=== PATIENT | female | born 1990 | race Caucasian/White ===

== ENCOUNTER → 2017-08-08 | Outpatient (CLI) | payer MEDICAID ==
[~2017-08-08] MED LIST: CALNTAB; MACR100C PO; ORTHTAB2 PO; PERC5TAB12 PO
== END ==
LOC: HPND 10:04
PROVIDERS: ATTEND Obstetrics & Gynecology
DX: O99.212 Obesity complicating pregnancy, second trimester (principal); E66.09 Other obesity due to excess calories; Z68.35 Body mass index [BMI] 35.0-35.9, adult; O34.211 Maternal care for low transverse scar from previous cesarean delivery
CPT/HCPCS: 76811

== ENCOUNTER 2017-12-24 22:35 | Inpatient (IN) ==
[2017-12-24] MEDS ORDERED: Naloxone Inj 0.4 MG/ML Vial IV.PUSH PRN (23:12)
[2017-12-24] MEDS ORDERED: Oxytocin 30 Units/500ml Premix 30 UNITS/500 ML BAG IV.SIG ONE (23:12)
[2017-12-24] MEDS ORDERED: ceFAZolin Inj 2,000 MG in Sodium Chlor 0.9% Inj 80 ML IV.SIG ONE (23:12)
--- NOTE | 2017-12-24 23:12 | ED ---
History of Present Illness Primary Care Physician: No Primary Care Physician Chief Complaint: 38 weeks, previous c section, leaking fluid History of Present Illness: Patient is a 27 yo at 38 weeks and 3 days. [facility] of [facility], previous C Section, scheduled for repeat LTCS at 39 weeks 12-28-2017. EDC 01-04-2018. Patient states she noted leaking fluid around 21:00 and after changing her pad, continued to leak. No vaginal bleeding. Active movements. complicated by gestational diabetes. Previous C Section was for FTP. patient plans tubal ligation and has state tubal papers signed. Weeks Gestation:: 38 Para: 1 : 2 Review of Systems All other systems reviewed negative except as stated in HPI PMFSH - History History Provided By: Patient - Medical History Medical History: Medical History (Last Updated 12/24/17 @ 23:11 by Junaid Kay MD) Gestational diabetes - Surgical History Surgical History: Surgical History (Last Updated 12/24/17 @ 23:11 by Junaid Kay MD) Hx laparoscopic cholecystectomy - Social History I have reviewed the patient's Social History: Yes - Tobacco History Tobacco Use In Past 30 Days: No Smoking Status: Never smoker - Alcohol History How Often Do You Have a Drink Containing Alcohol: Never - Substance Use History Substance History: No History of Abuse Medications and Allergies Allergies Allergy/AdvReac Type Severity Reaction Status Date / Time No Known Drug Allergies Allergy NONE Verified 12/24/17 23:08 Home Medications Medication Instructions Recorded Confirmed Type glyburide 5 mg PO DAILY PRN 12/24/17 12/24/17 History vit-iron fum-folic ac 1 tab PO DAILY 12/24/17 12/24/17 History [ Vitamin] Exam Vital signs: Vital Signs 12/24/17 23:02 Temperature 98.3 F Respiratory Rate 18 Narrative: GENERAL: Well-nourished, well-developed patient. SKIN: Warm and dry. HEAD: Normocephalic and atraumatic. EYES: No scleral icterus. No injection or drainage. ENT: No nasal drainage noted. Mucous membranes pink. Airway patent. NECK: Supple, trachea midline. No JVD. CARDIOVASCULAR: Regular rate and rhythm without murmurs, gallops, or rubs. RESPIRATORY: Breath sounds equal bilaterally. No accessory muscle use. BREASTS: Bilateral exam showed no masses , no retractions, no nipple discharge. ABDOMEN/GI: Abdomen soft, non-tender, bowel sounds present, no rebound, no guarding Gravid to [40] weeks size Fundal Height: [40cm] GENITOURINARY: External Genitalia: intact and normal in appearance BUS glands: [wnl] Cervix: [soft] Dilatation: [FT] Effacement: [50%] Station: [-3] Presentation: [vertex] Membranes: [ruptured] Positive pool, Amniosure positive. SSE Uterine Contractions: [-] FHT's: Category: [1] Baseline: [130s] Reactive: [-] Variability: [moderate] Decels: [none] EXTREMITIES: No cyanosis or edema. BACK: Nontender without obvious deformity. No CVA tenderness. NEUROLOGICAL: Awake and alert. Motor and sensory grossly within normal limits. Five out of 5 muscle strength in all muscle groups. Normal speech. - Constitutional no acute distress Results - Labs CBC & Chem 7: 12/24/17 23:19 Assessment and Plan - Diagnosis (1) with 38 completed weeks gestation Code(s): Z3A.38 - 38 weeks gestation of Status: Acute (2) Previous section Code(s): Z98.891 - History of uterine scar from previous surgery Status: Acute (3) Rupture of amniotic sac less than 24 hours prior to the onset of labor Code(s): O42.90 - Premature rupture of membranes, unspecified as to length of time between rupture and onset of labor, unspecified weeks of gestation Status : Acute Plan: Patient has SROM at term. Confirmed Patient had previous C Section and was scheduled for repeat LTCS 12-28-2017 Patient also has undesired fertility and plans tubal sterilzation. State papers have been signed. (4) Unwanted fertility Code(s): Z78.9 - Other specified health status Status: Acute Discharge Plan - Discharge Disposition Patient Disposition: 30 Still Patient - Discharge Condition Condition: Good - Discharge Details Diagnosis: 38 weeks gestation of , History of section, Premature rupture of membranes, Admitted to labor and delivery - Physicians Team ED Provider: Junaid Kay Primary Care Provider: Primary Care Felecia Lopez
[2017-12-24] MEDS ORDERED: Citric Acid/Sodium Citrate Liq 30 ML UDC PO SCH (23:15)
[2017-12-24] MEDS ORDERED: Morphine Sulfate PF Inj 5 MG/10 ML Ampul ONE (23:19)
[2017-12-24 23:28] LABS: Baso # (Auto) 0.1 th/mm3 (0.0-0.2); Baso % (Auto) 0.6 % (0.0-2.0); Eos # (Auto) 0.1 th/mm3 (0.0-0.4); Eos % (Auto) 0.7 % (0.0-4.0); Hematocrit 31.9 % (35.0-46.0); Lymph % (Auto) 20.9 % (9.0-44.0); Mean Corpuscular HGB Conc 34.5 % (32.0-36.0); Mean Corpuscular Hemoglobin 29.4 pg (27.0-34.0); Mean Corpuscular Volume 85.1 fL (80.0-100.0); Mean Platelet Volume 8.4 fL (7.0-11.0); Mono # (Auto) 0.6 th/mm3 (0.0-0.9); Neut % (Auto) 71.8 % (16.0-70.0); Platelet Count 152 th/mm3 (150-450); Red Blood Count 3.75 mil/mm3 (4.00-5.30); Red Cell Distribution Width 13.5 % (11.6-17.2); White Blood Count 9.7 th/mm3 (4.0-11.0)
[2017-12-24 23:31] LABS: Bilirubin,Urine Negative (Negative); Clarity,Urine Hazy (Clear); Color,Urine Yellow (Yellw/Straw); Glucose,Urine (UA) 150 mg/dL (Negative); Leukocyte Esterase,Urine Negative (Negative); Nitrite,Urine Negative (Negative); Specific Gravity,Urine 1.011 (1.002-1.035); Squamous Epithelial Cell,Urine 4 /hpf (0-5)
--- NOTE | 2017-12-24 23:32 | P.HPOB ---
History of Present Illness Primary Care Physician: No Primary Care Physician Chief Complaint: 38 weeks, previous c section, leaking fluid History of Present Illness: Patient is a 27 yo at 38 weeks and 3 days. [facility] of [facility], previous C Section, scheduled for repeat LTCS at 39 weeks 12-28-2017. EDC 01-04-2018. Patient states she noted leaking fluid around 21:00 and after changing her pad, continued to leak. No vaginal bleeding. Active movements. complicated by gestational diabetes. Previous C Section was for FTP. Patient plans tubal ligation and has state tubal papers signed. Weeks Gestation:: 38 Para: 1 : 2 - Inpatient Certification I certify that the inpatient services were ordered in accordance with Medicare regulations governing the order. This includes certification that hospital inpatient services are reasonable and necessary and in the case of services not specified as inpatient-only under 42 CFR 419.22(n), that they are appropriately provided as inpatient services in accordance to with the 2-midnight benchmark under 43 CFR 412.3(e) Estimated Total Length of Stay (Days): 3 Plans for Post Hospital Care: Home Review of Systems All other systems reviewed negative except as stated in HPI PMFSH - History History Provided By: Patient - Medical History Medical History: Medical History (Last Updated 12/24/17 @ 23:11 by Junaid Kay MD) Gestational diabetes - Surgical History Surgical History: Surgical History (Last Updated 12/24/17 @ 23:11 by Junaid Kay MD) Hx laparoscopic cholecystectomy - Social History I have reviewed the patient's Social History: Yes - Tobacco History Tobacco Use In Past 30 Days: No Smoking Status: Never smoker - Alcohol History How Often Do You Have a Drink Containing Alcohol: Never - Substance Use History Substance History: No History of Abuse Medications and Allergies Active Medications: Active Medications Citric Acid/Sodium Citrate (Sodium Citrate/Citric Acid Liq) 30 ml PO PRINCIPAL DATA [employer]CH[employer] [facility] Stop: 12/28/17 23:14 Lactated Ringer's (Lr 1000 Ml Inj) 1,000 mls @ 3,000 mls/hr IV.SIG UNSCH PRN PRN Reason: compromise or epidural Lactated Ringer's (Lr 1000 Ml Inj) 1,000 mls @ 125 mls/hr IV.CONT .Q8H [facility] Oxytocin (Pitocin 30 Units/Ns 500 Ml Premix) 30 units in 500 mls @ 999 mls/hr IV.SIG BOLUS ONE Stop: 12/24/17 23:42 Cefazolin Sodium 2,000 mg/ (Sodium Chloride) 100 mls @ 200 mls/hr IV.SIG ONCE ONE Stop: 12/24/17 23:41 Lidocaine HCl (Xylocaine 1% Inj) 0.1 ml I-DERMAL PRN PRN PRN Reason: For IV start Stop: 12/27/17 23:11 Lidocaine HCl (Xylocaine 1% Inj) 10 ml INFILTRATN PRN PRN PRN Reason: For episiotomy repair Stop: 12/26/17 23:11 Metoclopramide HCl (Reglan Inj) 10 mg IV.PUSH ONCE PRN; Protocol PRN Reason: NAUSEA OR VOMITING Mineral Oil (Muri-Lube Oil) 10 ml TOPICAL PRN PRN PRN Reason: PRN perineal massage Naloxone HCl (Narcan Inj) 0.1 mg IV.PUSH Q2M PRN PRN Reason: for opiate reversal Allergies Allergy/AdvReac Type Severity Reaction Status Date / Time No Known Drug Allergies Allergy NONE Verified 12/24/17 23:08 Home Medications Medication Instructions Recorded Confirmed Type glyburide 5 mg PO DAILY PRN 12/24/17 12/24/17 History vit-iron fum-folic ac 1 tab PO DAILY 12/24/17 12/24/17 History [ Vitamin] Exam Vital signs: Vital Signs 12/24/17 23:02 12/24/17 23:03 Temperature 98.3 F Pulse Rate 97 H Respiratory Rate 18 Blood Pressure 129/84 Intake & Output 12/24/17 12/24/17 12/25/17 06:59 18:59 06:59 Weight 99.79 kg Narrative: GENERAL: Well-nourished, well-developed patient. SKIN: Warm and dry. HEAD: Normocephalic and atraumatic. EYES: No scleral icterus. No injection or drainage. ENT: No nasal drainage noted. Mucous membranes pink. Airway patent. NECK: Supple, trachea midline. No JVD. CARDIOVASCULAR: Regular rate and rhythm without murmurs, gallops, or rubs. RESPIRATORY: Breath sounds equal bilaterally. No accessory muscle use. BREASTS: Bilateral exam showed no masses , no retractions, no nipple discharge. ABDOMEN/GI: Abdomen soft, non-tender, bowel sounds present, no rebound, no guarding Gravid to [40] weeks size Fundal Height: [40cm] GENITOURINARY: External Genitalia: intact and normal in appearance BUS glands: [wnl] Cervix: [soft] Dilatation: [FT] Effacement: [50%] Station: [-3] Presentation: [vertex] Membranes: [ruptured] Positive pool, Amniosure positive. SSE Uterine Contractions: [-] FHT's: Category: [1] Baseline: [130s] Reactive: [-] Variability: [moderate] Decels: [none] EXTREMITIES: No cyanosis or edema. BACK: Nontender without obvious deformity. No CVA tenderness. NEUROLOGICAL: Awake and alert. Motor and sensory grossly within normal limits. Five out of 5 muscle strength in all muscle groups. Normal speech. - Constitutional no acute distress Results - Labs CBC & Chem 7: 12/24/17 23:19 Labs: Laboratory Results - last 24 hr 12/24/17 23:19 WBC 9.7 RBC 3.75 L Hgb 11.0 L Hct 31.9 L MCV 85.1 MCH 29.4 MCHC 34.5 RDW 13.5 Plt Count 152 MPV 8.4 Neut % (Auto) 71.8 H Lymph % (Auto) 20.9 [place] % (Auto) 6.0 Eos % (Auto) 0.7 Baso % (Auto) 0.6 Neut # (Auto) 7.0 Lymph # (Auto) 2.0 [place] # (Auto) 0.6 Eos # (Auto) 0.1 Baso # (Auto) 0.1 WBC Differential . Differential Comment Auto diff final Group B Strep: Negative Caprini VTE Risk Assessment Caprini VTE Risk Assessment: Moderate/High Risk (score >= 2) VTE Pharmacological Exception Reason: High risk for bleeding Caprini Risk Assessment Model: Point Value = 1 Point Value = 2 Point Value = 3 Point Value = 5 Age 41-60 Minor surgery BMI > 25 kg/m2 Swollen legs Varicose veins or History of unexplained or recurrent spontaneous Oral contraceptives or hormone replacement Sepsis (< 1 month) Serious lung disease, including pneumonia (< 1 month) Abnormal pulmonary function Acute myocardial infarction Congestive heart failure (< 1 month) History of inflammatory bowel disease Medical patient at bed rest Age 61-74 Arthroscopic surgery Major open surgery (> 45 min) Laparoscopic surgery (> 45 min) Malignancy Confined to bed (> 72 hours) Immobilizing plaster cast Central venous access Age >= 75 History of VTE Family history of VTE Factor V Leiden Prothrombin [id number] Lupus anticoagulant Anticardiolipin antibodies Elevated serum homocysteine Heparin-induced thrombocytopenia Other congenital or acquired thrombophilia Stroke (< 1 month) Elective arthroplasty Hip, pelvis, or leg fracture Acute spinal cord injury (< 1 month) Prophylaxis Regimen: Total Risk Factor Score Risk Level Prophylaxis Regimen 0-1 Low Early ambulation 2 Moderate Order ONE of the following: *Sequential Compression Device (SCD) *Heparin 5000 units SQ BID 3-4 Higher Order ONE of the following medications: *Heparin 5000 units SQ TID *Enoxaparin/Lovenox 40 mg SQ daily (WT < 150 kg, CrCl > 30 mL/min) *Enoxaparin/Lovenox 30 mg SQ daily (WT < 150 kg, CrCl > 10-29 mL/min) *Enoxaparin/Lovenox 30 mg SQ BID (WT < 150 kg, CrCl > 30 mL/min) AND/OR *Sequential Compression Device (SCD) 5 or more Highest Order ONE of the following medications: *Heparin 5000 units SQ TID (Preferred with Epidurals) *Enoxaparin/Lovenox 40 mg SQ daily (WT < 150 kg, CrCl > 30 mL/min) *Enoxaparin/Lovenox 30 mg SQ daily (WT < 150 kg, CrCl > 10-29 mL/min) *Enoxaparin/Lovenox 30 mg SQ BID (WT < 150 kg, CrCl > 30 mL/min) AND *Sequential Compression Device (SCD) Assessment and Plan - Diagnosis (1) with 38 completed weeks gestation Code(s): Z3A.38 - 38 weeks gestation of Status: Acute (2) Previous section Code(s): Z98.891 - History of uterine scar from previous surgery Status: Acute (3) Rupture of amniotic sac less than 24 hours prior to the onset of labor Code(s): O42.90 - Premature rupture of membranes, unspecified as to length of time between rupture and onset of labor, unspecified weeks of gestation Status : Acute Plan: Patient has SROM at term. Confirmed Patient had previous C Section and was scheduled for repeat LTCS 12-28-2017 Patient also has undesired fertility and plans tubal sterilzation. State papers have been signed. (4) Unwanted fertility Code(s): Z78.9 - Other specified health status Status: Acute Plan: Proceed with repeat LTCS and bilateral tubal sterilization by bilateral salpingectomy. GBS negative.
[2017-12-24] MEDS ORDERED: Normosol-R pH 7.4 Inj 1,000 ML IV.CONT ONE (23:34)
[2017-12-24] MEDS ORDERED: Phenylephrine/NS 1000 MCG/10ML Syringe IV.PUSH ONE (23:34)
[2017-12-24 23:36] LABS: Amphetamine Urine With Conf Neg (Neg); Benzodiazepine Urine With Conf Neg (Neg)
[2017-12-25] MEDS ORDERED: Bisacodyl 10 MG Supp RECTAL PRN (01:07)
[2017-12-25] MEDS ORDERED: Oxytocin 30 Units/500ml Premix 30 UNITS/500 ML BAG IV.CONT PRN (01:07)
[2017-12-25] MEDS ORDERED: Zolpidem Tartrate 5 MG Tablet PO PRN (01:07)
[2017-12-25] MEDS ORDERED: Witch Hazel 50%/Glyderin 12.5% 40 Pad Jar RECTAL PRN (01:07)
[2017-12-25] MEDS ORDERED: Acetaminophen 325 MG Tablet PO PRN (01:07)
[2017-12-25] MEDS ORDERED: Naloxone Inj 0.4 MG/ML Vial IV.PUSH PRN ×2 (01:07)
[2017-12-25] MEDS ORDERED: Benzocaine 20% Top Spray 60 ML Can TOPICAL PRN (01:07)
--- NOTE | 2017-12-25 01:07 | P.OBDELI ---
Procedure Note - Pre Op Diagnosis (1) with 38 completed weeks gestation (2) Previous section (3) Rupture of amniotic sac less than 24 hours prior to the onset of labor (4) Unwanted fertility - Post Op Diagnosis (1) with 38 completed weeks gestation (2) Previous section (3) Rupture of amniotic sac less than 24 hours prior to the onset of labor (4) Unwanted fertility Performed by: Junaid Kay MD Procedure: Repeat Low Transverse Section, Other (BILATERAL SALPINGECTOMY) Indication for Delivery: Desired elective repeat , Other (Spontaneous rupture of Membranes) Informed Consent Obtained: For anesthesia, For procedure Confirmed Correct: Patient, Procedure, Time-out taken Anesthesia: Spinal (previous LTCS) Medication Prior to Procedure: As documented in eMAR, Antacids, Antibiotics, IV , Antiemetics Urinary Catheter: Inserted using sterile technique, To dependent drainage Sterile Preparation: With 2% chlorexidine (Hibiclens) Position: Supine with wedge to left side - Operative Features Skin Incision: Pfannenstiel Uterine Incision: Low transverse w/knife / blunt ext Membranes Ruptured: Previously Presentation: Occiput posterior Status of : Viable, Umbilical cord, Nursery present Placenta Delivered: Intact Medications: Antibiotics, Oxytocin Estimated blood loss (mL): 600 Procedure Tolerated: Well Maternal Condition: Stable Baby Condition: Stable Procedure in Detail: Patient was brought to oR where she was properly identified and informed consent confirmed. She was positioned for spinal anesthesia which was induced without any difficulty. Patient was then positioned in a dorsal supine position with leftward tilt. A Martini catheter was then inserted under sterile technique. She was cleansed and draped in standard sterile fashion. After confirming adequacy of anesthesia scalpel was used to make incision through her previous pfannsteil scar and then continued through subcutaneous layer using Bovie cautery. Rectus fascia was scored in the midline and extended bilaterally using curved Ruano scissors. Rectus fascia was from underlying rectus muscles inferiorly and superiorly,using sharp dissection with Bovie pencil. Rectus muscles were in midline and underlying peritoneum identified. this was tented upwards between two hemostats, entered sharply with Sanjiv scissors, and extended superiorly and inferiorly with Bovie pencil, with careful visualization of the bladder. Inspection of intraperitoneal anatomy was done and bladder blade applied. The vesicouterine reflection was tented with pickups, entered sharply with Guide Rock and extended bilaterally. bladder flap was then created digitally, and bladder blade repositioned. Fresh scalpel was then used to make incision over AZUL, and amniotomy was done with clear fluid. Infant was delivered from ROP position, and shoulders and trunk easily delivered. Delayed cord clamping was achieved, and then cord clamped and divided and passed to waiting pediatric attending. Placenta and membranes delivered manually, and uterus exteriorized. incision closed in 3 layers, first of 0 Vicryl in continuous locking fashion for hemostasis, and the second of the same material that was used to imbricate the first. After confirmed hemostasis at the angles, the vesicouterine reflection was reapproximated using 2.0 Vircyl. Attention was then turned to tubal sterilization. the tubes were identified and elevated in midsegment with Jeannette clamps. The mesosalpinx was perforated horizontally thus isolating a length of tube that was clamped with hemostats and tied off x 2 with Chromic ties. Gutters were cleansed of all clots and debris and uterus returned to its intraperitoneal location. Interceed adhesion barrier was then placed over incision and uterine fundus. Parietal peritoneum was then closed using 2.0 Vicryl. Rectus fascia was closed using PDS 1, and then subcutaneous layer irrigated with warm saline, and space closed with 2.0 Vicryl. Finally skin closed in subcuticular fashion with 3.0 Monocryl. Pressure dressing applied. patient tolerated procedure well and transferred stable to Recovery. - Infant Infant: Male Infant Male A Delivery Date: 12/25/17 Delivery Time: 23:09 Weight: 2950 kg Delivery of Infant: Uneventful score (1 min): 9 (Attention was turned to bilateral salpingectomy. Elevated with Jeannette clamp and mesosalphinx perforated transversely, and length of tube clamped and tied odd with 1 Chromic ties.) score (5 min): 9 (patient tolerated procedure well, and transferred stable to recovery.)
[2017-12-25] MEDS ORDERED: Oxytocin 30 Units/500ml Premix 30 UNITS/500 ML BAG ONE (02:47)
[2017-12-25] MEDS ORDERED: Simethicone 80 MG Chew Tablet PO PRN (03:51)
[2017-12-25] MEDS: Senna/Docusate Sodium 8.6/50 MG Tablet PO SCH ×2 (08:24→20:34)
[2017-12-25] MEDS: ceFAZolin Inj 2,000 MG in Sodium Chlor 0.9% Inj 80 ML IV.SIG SCH ×2 (08:43→16:45)
[2017-12-25] MEDS: Prenatal Vit/Ca/Iron/Folic Acid Tablet PO SCH (08:53)
[2017-12-25] MEDS ORDERED: Measles/Mumps/Rubella Vaccine Inj 0.5 ML Vial SQ ONE (16:00)
[2017-12-25] MEDS ORDERED: Diphtheria/Tetanus/Pertussis Vaccine Inj 0.5 ML Syringe IM ONE (16:00)
[2017-12-26] MEDS: Senna/Docusate Sodium 8.6/50 MG Tablet PO SCH ×3 (02:11→21:33)
[2017-12-26 05:47] LABS: Baso % (Auto) 0.2 % (0.0-2.0); Eos # (Auto) 0.2 th/mm3 (0.0-0.4); Eos % (Auto) 1.9 % (0.0-4.0); Hematocrit 28.5 % (35.0-46.0); Hemoglobin 9.9 gm/dL (11.6-15.3); Lymph # (Auto) 1.8 th/mm3 (1.0-4.8); Lymph % (Auto) 18.8 % (9.0-44.0); Mean Corpuscular Hemoglobin 30.1 pg (27.0-34.0); Mean Platelet Volume 8.9 fL (7.0-11.0); Mono # (Auto) 0.5 th/mm3 (0.0-0.9); Mono % (Auto) 5.6 % (0.0-8.0); Neut # (Auto) 6.8 th/mm3 (1.8-7.7); Neut % (Auto) 73.5 % (16.0-70.0); Platelet Count 127 th/mm3 (150-450); Red Blood Count 3.31 mil/mm3 (4.00-5.30); Red Cell Distribution Width 13.7 % (11.6-17.2); White Blood Count 9.3 th/mm3 (4.0-11.0)
[2017-12-26 06:12] LABS: Anion Gap 10 meq/L (5-15); Blood Urea Nitrogen 6 mg/dL (7-18); Calcium 7.9 mg/dL (8.5-10.1); Carbon Dioxide 22.3 meq/L (21.0-32.0); Chloride 110 meq/L (98-107); Glomerular Filtration Rate Greater Than 89 mL/min (>89); Glucose,Random 89 mg/dL (74-106); Potassium 3.8 meq/L (3.5-5.1); Sodium 142 meq/L (136-145)
--- NOTE | 2017-12-26 07:18 | P.PNOB ---
Subjective Post op day: 1 Interval history: Postoperative day # 1 AFVSS overnight. Incision not draining. Decreased lochia. Denies dysuria. No breast tenderness. Appetite good. No nausea or vomiting. Positive flatus. Ambulating well. Denies calf pain or shortness of breath. Otherwise, she is doing well this morning and has no other complaints. Objective Vital Signs/I&O: Vital Signs 12/25/17 07:50 12/25/17 12:45 12/25/17 17:55 Temperature 97.6 F 98.0 F 98.1 F Pulse Rate 66 74 93 H Respiratory Rate 18 18 20 Blood Pressure 104/57 L 113/68 109/66 12/25/17 20:10 12/26/17 02:10 Temperature 98.0 F 98.8 F Pulse Rate 93 H 100 H Respiratory Rate 18 16 Blood Pressure 104/66 107/61 Intake & Output 12/25/17 12/26/17 12/26/17 18:59 06:59 18:59 Intake Total 100 / 100 Balance 100 / 100 Intake: IV 100 / 100 Ancef Inj 2,000 MG In NS Inj 80 100 / 100 ML @ 200 mls/hr IV.SIG Q8H [facility] Rx#:[id number] Result Diagrams: 12/26/17 05:04 12/26/17 05:04 Objective Remarks: GENERAL: Well-nourished, well-developed patient. CARDIOVASCULAR: Regular rate and rhythm without murmurs, gallops, or rubs. RESPIRATORY: Breath sounds equal bilaterally. No accessory muscle use. ABDOMEN/GI: Abdomen soft, non-tender, bowel sounds present. Incision: Clean, dry and intact. Fundus: Firm, non-tender at umbilicus. GENITOURINARY: Light to moderate bleeding. EXTREMITIES: No cyanosis or edema, non-tender, without signs of DVT. Medications and IVs: Active Medications Acetaminophen (Tylenol) 650 mg PO Q4H PRN PRN Reason: PAIN SCALE 1 TO 2 Al Hydroxide/Mg Hydroxide (Milk Of Magnaraceli Liq) 30 ml PO Q12H PRN PRN Reason: Mild Constipation Benzocaine (Americaine 20% Top Haver[place]raw) 1 spray TOPICAL Q4H PRN PRN Reason: For Perineum Discomfort Bisacodyl (Dulcolax Supp) 10 mg RECTAL DAILY PRN PRN Reason: SEVERE CONSITIPATION Citric Acid/Sodium Citrate (Sodium Citrate/Citric Acid Liq) 30 ml PO [employer]NAGER [employer] TG Stop: 12/28/17 23:14 Lactated Ringer's (Lr 1000 Ml Inj) 1,000 mls @ 3,000 mls/hr IV.SIG UNSCH PRN PRN Reason: compromise or epidural Last Admin: 12/24/17 23:18 Dose: 3,000 mls/hr Oxytocin (Pitocin 30 Units/Ns 500 Ml Premix) 30 units in 500 mls @ 100 mls/hr IV.CONT UNSCH PRN PRN Reason: Heavy bleeding Ibuprofen (Motrin) 800 mg PO Q8H PRN PRN Reason: For Cramping Last Admin: 12/26/17 02:10 Dose: 800 mg Ketorolac Tromethamine (Toradol Inj) 30 mg IM Q6H PRN PRN Reason: SEE LABEL COMMENTS Lactulose (Lactulose Liq) 30 ml PO DAILY PRN PRN Reason: SEVERE CONSITIPATION Lidocaine HCl (Xylocaine 1% Inj) 0.1 ml I-DERMAL PRN PRN PRN Reason: For IV start Stop: 12/27/17 23:11 Lidocaine HCl (Xylocaine 1% Inj) 10 ml INFILTRATN PRN PRN PRN Reason: For episiotomy repair Stop: 12/26/17 23:11 Metoclopramide HCl (Reglan Inj) 10 mg IV.PUSH ONCE PRN; Protocol PRN Reason: NAUSEA OR VOMITING Mineral Oil (Muri-Lube Oil) 10 ml TOPICAL PRN PRN PRN Reason: PRN perineal massage Naloxone HCl (Narcan Inj) 0.1 mg IV.PUSH Q2M PRN PRN Reason: for opiate reversal Naloxone HCl (Narcan Inj) 0.1 mg IV.PUSH Q2M PRN PRN Reason: for opiate reversal Ondansetron HCl (Zofran Odt) 4 mg PO Q6H PRN PRN Reason: NAUSEA OR VOMITING Oxycodone/Acetaminophen (Percocet 5/325 Mg) 1 tab PO Q4H PRN PRN Reason: PAIN SCALE 3 TO 5 Last Admin: 12/26/17 02:11 Dose: 1 tab Oxycodone/Acetaminophen (Percocet 5/325 Mg) 2 tab PO Q4H PRN PRN Reason: PAIN SCALE 6 TO 10 Vit/Calcium/Iron/Folic Ac (Stuartnatal Plus 3) 1 tab PO DAILY [facility] Last Admin: 12/25/17 08:53 Dose: Not Given Senna/Docusate Sodium (Mariama-Colace) 1 tab PO BID [facility] Last Admin: 12/26/17 02:11 Dose: 1 tab Sennosides (Senokot) 17.2 mg PO Q12H PRN PRN Reason: Moderate Constipation Simethicone (Mylicon Chew) 80 mg PO QID PRN PRN Reason: FLATULENCE Sodium Chloride (Ns Flush) 2 ml IV.FLUSH BID [facility] Last Admin: 12/25/17 21:00 Dose: 2 ml Sodium Chloride (Ns Flush) 2 ml IV.FLUSH PRN PRN PRN Reason: FLUSH AFTER USING IV ACCESS Sodium Chloride (Ns Flush) 2 ml IV.FLUSH BID [facility] Last Admin: 12/26/17 02:14 Dose: Not Given Sodium Chloride (Ns Flush) 2 ml IV.FLUSH PRN PRN PRN Reason: FLUSH AFTER USING IV ACCESS Witch Paty/Glycerin (Tucks Pads) 1 applicatio RECTAL QID PRN PRN Reason: HEMORRHOIDS Zolpidem Tartrate (Ambien) 5 mg PO HS PRN PRN Reason: SLEEP Assessment and Plan - Plan 27 y/o female who is POD# 1 s/p CXN. -Continue routine care. -Percocet and Motrin PRN pain. -Encouraged OOB. Advised pelvic rest for 6 wks. Will need a f/u appt. in 1 wk for incision check. -Re: ctrl, she has had a tubal ligation. -D/c likely today or tomorrow. wdw Dr. Barksdale - Attending Attestation The exam, history, and the medical decision-making described in the above note were completed with the assistance of the resident physician. I reviewed and agree with the findings presented. I attest that I had a [id number] encounter with the patient on the same day, and personally performed and documented my assessment and findings in the medical record.
[2017-12-26] MEDS: Prenatal Vit/Ca/Iron/Folic Acid Tablet PO SCH (11:17)
[2017-12-27 07:23] VITALS: BP 125/71; PULSE 87
[2017-12-27 07:24] VITALS: RESP 20; TEMP 97
--- NOTE | 2017-12-27 08:15 | P.PNOB ---
Subjective Post op day: 2 Interval history: Postoperative day # 2 Afebrile with stable vitals overnight. Incision not draining. Decreased lochia. Denies dysuria. Appetite good. No nausea or vomiting. Positive flatus. Ambulating well. Denies calf pain or shortness of breath. Otherwise, she is doing well this morning and has no other complaints. Objective Vital Signs/I&O: Vital Signs 12/26/17 08:45 12/26/17 09:10 12/26/17 14:30 Temperature 97.9 F 97.8 F Pulse Rate 97 H 86 Respiratory Rate 16 16 Blood Pressure 123/75 116/69 12/26/17 20:10 12/27/17 07:22 Temperature 97.8 F 97.0 F L Pulse Rate 100 H 87 Respiratory Rate 16 20 Blood Pressure 136/74 125/71 Result Diagrams: 12/26/17 05:04 12/26/17 05:04 Objective Remarks: General: Alert, well appearing, in no acute distress Skin: Warm and dry HEENT: Atraumatic. Moist mucus membranes Cardiac: Regular rate and rhythm without murmur Pulmonary: No increased work of breathing. Clear to auscultation bilaterally with good air movement. Abdominal: Non-tender. uterus firm and below the umbilicus Extremities: 2+ pedal pulses, no edema, no calf tenderness Incision is healing well. No drainage or surrounding erythema. Medications and IVs: Active Medications Acetaminophen (Tylenol) 650 mg PO Q4H PRN PRN Reason: PAIN SCALE 1 TO 2 Al Hydroxide/Mg Hydroxide (Milk Of Magnesia Liq) 30 ml PO Q12H PRN PRN Reason: Mild Constipation Benzocaine (Americaine 20% [place]) 1 spray TOPICAL Q4H PRN PRN Reason: For Perineum Discomfort Bisacodyl (Dulcolax Supp) 10 mg RECTAL DAILY PRN PRN Reason: SEVERE CONSITIPATION Citric Acid/Sodium Citrate (Sodium Citrate/Citric Acid Liq) 30 ml PO [employer] [facility] Stop: 12/28/17 23:14 Lactated Ringer's (Lr 1000 Ml Inj) 1,000 mls @ 3,000 mls/hr IV.SIG UNSCH PRN PRN Reason: compromise or epidural Last Admin: 12/24/17 23:18 Dose: 3,000 mls/hr Oxytocin (Pitocin 30 Units/Ns 500 Ml Premix) 30 units in 500 mls @ 100 mls/hr IV.CONT UNSCH PRN PRN Reason: Heavy bleeding Ibuprofen (Motrin) 800 mg PO Q8H PRN PRN Reason: For Cramping Last Admin: 12/27/17 05:32 Dose: 800 mg Ketorolac Tromethamine (Toradol Inj) 30 mg IM Q6H PRN PRN Reason: SEE LABEL COMMENTS Lactulose (Lactulose Liq) 30 ml PO DAILY PRN PRN Reason: SEVERE CONSITIPATION Lidocaine HCl (Xylocaine 1% Inj) 0.1 ml I-DERMAL PRN PRN PRN Reason: For IV start Stop: 12/27/17 23:11 Metoclopramide HCl (Reglan Inj) 10 mg IV.PUSH ONCE PRN; Protocol PRN Reason: NAUSEA OR VOMITING Mineral Oil (Muri-Lube Oil) 10 ml TOPICAL PRN PRN PRN Reason: PRN perineal massage Naloxone HCl (Narcan Inj) 0.1 mg IV.PUSH Q2M PRN PRN Reason: for opiate reversal Naloxone HCl (Narcan Inj) 0.1 mg IV.PUSH Q2M PRN PRN Reason: for opiate reversal Ondansetron HCl (Zofran Odt) 4 mg PO Q6H PRN PRN Reason: NAUSEA OR VOMITING Oxycodone/Acetaminophen (Percocet 5/325 Mg) 1 tab PO Q4H PRN PRN Reason: PAIN SCALE 3 TO 5 Last Admin: 12/27/17 05:33 Dose: 1 tab Oxycodone/Acetaminophen (Percocet 5/325 Mg) 2 tab PO Q4H PRN PRN Reason: PAIN SCALE 6 TO 10 Vit/Calcium/Iron/Folic Ac (Stuartnatal Plus 3) 1 tab PO DAILY [facility] Last Admin: 12/26/17 11:17 Dose: Not Given Senna/Docusate Sodium (Mariama-Colace) 1 tab PO BID [facility] Last Admin: 12/26/17 21:33 Dose: 1 tab Sennosides (Senokot) 17.2 mg PO Q12H PRN PRN Reason: Moderate Constipation Simethicone (Mylicon Chew) 80 mg PO QID PRN PRN Reason: FLATULENCE Sodium Chloride (Ns Flush) 2 ml IV.FLUSH BID [facility] Last Admin: 12/26/17 21:29 Dose: Not Given Sodium Chloride (Ns Flush) 2 ml IV.FLUSH PRN PRN PRN Reason: FLUSH AFTER USING IV ACCESS Sodium Chloride (Ns Flush) 2 ml IV.FLUSH BID TG Last Admin: 12/26/17 21:29 Dose: Not Given Sodium Chloride (Ns Flush) 2 ml IV.FLUSH PRN PRN PRN Reason: FLUSH AFTER USING IV ACCESS Witch Paty/Glycerin (Tucks Pads) 1 applicatio RECTAL QID PRN PRN Reason: HEMORRHOIDS Zolpidem Tartrate (Ambien) 5 mg PO HS PRN PRN Reason: SLEEP Assessment and Plan - Plan 27 y/o female who is POD# 2 s/p CXN and bilateral tubal ligation -Continue routine care. -Percocet and Motrin PRN pain. -Encouraged OOB. Advised pelvic rest for 6 wks. Will need a f/u appt. in 1 wk for incision check. -Anticipate discharge home today Care discussed with Dr. Saleh
[2017-12-27] MEDS: Prenatal Vit/Ca/Iron/Folic Acid Tablet PO SCH (10:59)
[2017-12-27] MEDS: Senna/Docusate Sodium 8.6/50 MG Tablet PO SCH (11:00)
== END 2017-12-27 15:50 | disposition home or self-care (01) ==
LOC: HOBED 22:35 → H2E 23:10 → H1EA 12-25 02:54
PROVIDERS: ADMIT Obstetrics & Gynecology; ATTEND Obstetrics & Gynecology